=== PATIENT | female | born 1960 | race Caucasian/White ===

== ENCOUNTER 2016-09-14 13:38 | Outpatient (CLI) | payer OTHER ==
--- NOTE | 2016-09-14 15:29 | DIAGNOSTIC IMAGING REPORT ---
PROCEDURE: ABDOMEN/PELVIS WITH CONTRAST CLINICAL INDICATION: ABDOMINAL PAIN, nausea, diarrhea, loss of appetite TECHNIQUE: 125 ml of Isovue 300 were injected intravenously and axial images were obtained of the abdomen and pelvis with sagittal and coronal reformations. COMPARISON: None. Correlation made ultrasound performed the same day. FINDINGS: ABDOMEN: Clear lung bases. Normal sized heart. No hiatal hernia. The liver, gallbladder, adrenal glands, kidneys, pancreas and spleen are normal. The abdominal aorta is normal in its course and caliber. Moderate atherosclerosis. There are no suspicious calcifications, retroperitoneal adenopathy or masses. The stomach is decompressed with fairly normal appearance. The ligament of Treitz is likely lax or absent. The fourth portion of the duodenum/jejunum courses anterior and to the right of midline. No evidence of internal hernia. Upper bowel loops are minimally prominent with air fluid levels present. The entire colon demonstrates moderate diffuse wall thickening and pronounced mucosal hyperemia. Minor pericolonic inflammation diffusely. No extraluminal gas or free fluid. Normal appendix. PELVIS: The uterus and ovaries are surgically absent. Rectal mucosa is also hyperemic. There is liquid stool present. The urinary bladder, and pelvic vessels are normal. No adenopathy, free fluid, or pelvic mass. Intact osseous structures. IMPRESSION: 1. Diffuse colitis, likely infectious or inflammatory, with proximal small bowel changes of enteritis as well. 2. Post hysterectomy. 3. Discussed with Elli Duran. All CT scans at this facility use dose modulation, iterative reconstruction, and/or weight-based dosing when appropriate to reduce radiation dose to as low as reasonably achievable.
--- NOTE | 2016-09-14 15:31 | DIAGNOSTIC IMAGING REPORT ---
PROCEDURE: US ABDOMEN ULTRASOUND-COMPLETE INDICATION: ABDOMINAL PAIN TECHNIQUE: Colon scale and color Doppler sonographic images of the abdomen were obtained without comparison. COMPARISON: None. FINDINGS: The liver is mildly hypoechoic with echogenic portal triads. No mass or biliary dilatation. The gallbladder is normal without stones or sludge. The wall is normal thickness measuring 2.5 mm. No pericholecystic fluid or Beckman sign. The extrahepatic common duct is normal measuring 3.9 mm. The pancreas was suboptimally seen secondary to bowel gas. The abdominal aorta is irregular in course and mildly diminutive in caliber distally secondary to moderate atherosclerosis. The retrohepatic inferior vena cava is patent. There is appropriate hepatopetal flow in the portal vein. The right kidney measures 9.8 cm in length. The left kidney measures 10.3 cm in length. Both kidneys demonstrate normal morphology and cortical thickness without hydronephrosis, cyst, or solid mass. There is a questionable nonobstructing shadowing calculus in the lower pole of the left kidney measuring about 4 mm. Color Doppler imaging demonstrates normal blood flow in each kidney. The spleen is normal in size measuring 11.0 cm in length. There is no perihepatic or perisplenic ascites. IMPRESSION: 1. No evidence of cholelithiasis or cholecystitis. 2. Mildly hypoechoic hepatic parenchyma may indicate a mild hepatitis. Correlate with LFTs. 3. Nonobstructing 4 mm left intrarenal calcification. 4. Moderate atherosclerosis.
[2016-10-11] MEDS ORDERED: ATORVASTATIN CA40 MG PO (13:04)
[2016-10-11] MEDS ORDERED: TRIAMCINOLONE A0.13 (13:06)
[2016-10-11] MEDS ORDERED: TRANSDERM-SCOP1.5 MG TOP (13:09)
== END 2016-09-14 23:00 ==
LOC: US SRH 13:38
DX: K52.9 Noninfective gastroenteritis and colitis, unspecified (principal)

== ENCOUNTER 2016-10-05 09:48 | Outpatient (CLI) | payer OTHER ==
[2016-10-11] MEDS ORDERED: ATORVASTATIN CA40 MG PO (13:04)
[2016-10-11] MEDS ORDERED: TRIAMCINOLONE A0.13 (13:06)
[2016-10-11] MEDS ORDERED: TRANSDERM-SCOP1.5 MG TOP (13:09)
== END 2016-10-05 23:00 ==
LOC: LAB SRH 09:48
DX: R19.7 Diarrhea, unspecified (principal)
CPT/HCPCS: 90112; 90124; 90455; 99784